=== PATIENT | female | born 1965 | race Caucasian/White ===

== ENCOUNTER 2017-04-01 11:12 | Emergency (ER) | payer BC ==
[2017-04-01 11:17] VITALS: BP 129/77; PULSE 77; TEMP 98.7; BMI 21.1
--- NOTE | 2017-04-01 11:53 | PDOC ---
History of Present Illness - General Chief Complaint: Back Pain Stated Complaint: LOW BACK PAIN Time Seen by Provider: 04/01/17 11:24 History Source: Patient Exam Limitations: No Limitations - History of Present Illness Initial Comments: 04/01/17 12:26 Patient is a [52-year-old female, only history of hypothyroidism on Synthroid presents for evaluation of right lateral lower back pain patient reports coughing a lot the last week was seen by her PMD started on cefdinir for sinus, upper respiratory infection. Patient states pain started yesterday once to make sure either she pulled her back or pain maybe from excessive coughing. Patient denies any shortness of breath. No upper back pain. No chest pain. Denies any hematuria or urinary symptoms.] Past Medical History: [Denies]. Allergies: No known allergies Medications: [Synthroid ] Family History: Non-contributory Social History: Denies smoking, alcohol use, or IVDU Vital signs on arrival are [notable for pulse of 96.] Review of Systems GENERAL/CONSTITUTIONAL: [No fever or chills. No weakness. No weight change.] HEAD, EYES, EARS, NOSE AND THROAT: [No change in vision. No ear pain or discharge. No sore throat. ] CARDIOVASCULAR: [No chest pain or shortness of breath.] RESPIRATORY: [+ cough, no wheezing, no hemoptysis.] GASTROINTESTINAL: [No nausea, vomiting, diarrhea or constipation. No rectal bleeding.] GENITOURINARY: [No dysuria, frequency, or change in urination.] MUSCULOSKELETAL: [No joint or muscle swelling or pain. No neck or back pain.] SKIN: [No rash or easy bruising.] NEUROLOGIC: [No headache, vertigo, loss of consciousness, or loss of sensation.] PSYCHIATRIC: [No depression or anxiety.] ENDOCRINE: [No increased thirst. No abnormal weight change.] HEMATOLOGIC/LYMPHATIC: [No anemia, easy bleeding, or history of blood clots.] ALLERGIC/IMMUNOLOGIC: [No hives or skin allergy. No latex allergy.] Physical Exam: GENERAL: [The patient is awake, alert, and fully oriented, in no acute distress. ] HEAD: [Normal with no signs of trauma.] EYES: [Pupils equal, round and reactive to light, extraocular movements intact, sclera anicteric, conjunctiva clear.] ENT: [Ears normal, nares patent, oropharynx clear without exudates. Moist mucous membranes. No uvula deviation] NECK: [Normal range of motion, supple without lymphadenopathy, JVD, or masses.] LUNGS: [Breath sounds equal. + wheezes, cleared with cough and no crackles.] HEART: [Regular rate and rhythm, normal S1 and S2 without murmur, rub or gallop. ] ABDOMEN: [Soft, nontender, normoactive bowel sounds. No guarding, no rebound. No masses. No bruising or abrasions] MUSCULOSKELETAL: [Normal range of motion, no edema. No clubbing or cyanosis. No cords, erythema, or tenderness. +mild CVA Tenderness on right with fist palpation.] NEUROLOGICAL: [Cranial nerves II through XII grossly intact. Normal speech, normal gait.] SKIN: [Warm, Dry, normal turgor, no rashes or lesions noted.] Occurred: reports: last week Past History - Past Medical History Allergies/Adverse Reactions: Allergies Allergy/AdvReac Type Severity Reaction Status Date / Time No Known Allergies Allergy Verified 04/01/17 11:17 Home Medications: Ambulatory Orders Levothyroxine [Synthroid -] 25 mcg PO DAILY 04/01/17 Naproxen [Naprosyn -] 500 mg PO BID #14 tablet 04/01/17 Promethazine HCl [Phenergan Plain 6.25 MG/5 ML -] 5 ml PO TID #60 ml 04/01/17 COPD: No Thyroid Disease: Yes - Suicide/Smoking/Psychosocial Hx Smoking History: Never smoked Hx Alcohol Use: No Drug/Substance Use Hx: No Substance Use Type: None *Physical Exam - Vital Signs Last Vital Signs Temp Pulse Resp BP Pulse Ox 98.7 F 77 20 129/77 97 04/01/17 11:13 04/01/17 11:13 04/01/17 11:13 04/01/17 11:13 04/01/17 11:13 ED Treatment Course - RADIOLOGY Radiology Studies Ordered: Category Date Time Status CHEST PA & LAT [RAD] Stat Radiology 04/01/17 11:33 Ordered Medical Decision Making - Medical Decision Making 04/01/17 12:29 A/P: Patient here for evaluation of bilateral low back pain most likely musculoskeletal in nature however cannot rule out urinary tract infection versus pneumonia. Will perform urinalysis, urine culture and chest xray. 04/01/17 13:20 Urinalysis and x-ray of both negative, Toradol 60 mg IM N, pain is musculoskeletal in nature. Reevaluate 04/01/17 22:47 Patient states relief after the Toradol DC patient home on Naprosyn follow-up with orthopedics if pain persists. I discussed the physical exam findings, ancillary test results and final diagnoses with the patient. I answered all of the patient's questions. The patient was satisfied with the care received and felt comfortable with the discharge plan and treatment plan. The patient will call to arrange follow-up and will return to the Emergency Department with any new, persistent or worsening symptoms. *DC/Admit/Observation/Transfer Diagnosis at time of Disposition: Musculoskeletal pain - Discharge Dispostion Disposition: HOME Condition at time of disposition: Good Admit: No - Prescriptions Prescriptions: Naproxen [Naprosyn -] 500 mg PO BID #14 tablet Promethazine HCl [Phenergan Plain 6.25 MG/5 ML -] 5 ml PO TID #60 ml - Referrals Referrals: Tara Cornejo [Primary Care Provider] - - Patient Instructions Additional Instructions: Refrain from lifting anything heavy recommend follow-up with PMD if symptoms are not starting to resolve on Monday. If any shortness of breath, chest pain or any other concerns return to ER - Post Discharge Activity Forms/Work/School Notes: Back to Work
[2017-04-01 11:56] LABS: URINE APPEARANCE CLEAR; URINE BILIRUBIN NEGATIVE (NEGATIVE); URINE BLOOD NEGATIVE (NEGATIVE); URINE COLOR LTYELLOW; URINE GLUCOSE (UA) NEGATIVE (NEGATIVE); URINE KETONE NEGATIVE (NEGATIVE); URINE NITRITE NEGATIVE (NEGATIVE); URINE PROTEIN NEGATIVE (NEGATIVE); URINE UROBILINOGEN NEGATIVE mg/dL (0.2-1.0)
[2017-04-01] MEDS ORDERED: KETOROLAC TROMETHAMINE 60 MG/2 ML VIAL IM ONE (13:19)
[2017-04-01] MEDS ORDERED: KETOROLAC TROMETHAMINE 60 MG/2 ML VIAL ONE (13:22)
[2017-04-01 17:35] LABS: URINE LEUK ESTERASE Negative (NEGATIVE)
== END 2017-04-01 13:52 | disposition home or self-care (01) ==
LOC: JERFT 11:12
PROC: 3E0233Z Introduction of Anti-inflammatory into Muscle, Percutaneous Approach (ICD-10-PCS; principal; 2017-04-01)
DX: M54.5 Low back pain (principal); E03.9 Hypothyroidism, unspecified
CPT/HCPCS: 71020-TC; 81003; 87086; 99281-25

== ENCOUNTER 2017-07-21 21:41 | Inpatient (IN) | payer BC ==
[2017-07-21] MEDS ORDERED: diazePAM 5 MG TABLET PO ONE (22:24)
--- NOTE | 2017-07-21 22:46 | PDOC ---
History of Present Illness <Adri Virk - Last Filed: 07/22/17 00:25> <Clementina Pina - Last Filed: 07/22/17 05:26> - History of Present Illness Initial Comments: 07/21/17 22:46 "The patient is a 52 year old female with a significant PMH of hypothyroidism and sciatica who presents to the emergency department with pain along her left hip radiating to the knee for the past week. The patient states the left hip pain is worse with movement and reports she is having difficulty standing or walking. Pt had a similar episode in March of last year that resolved with naproxen after a few days. Pt states that this episode began a week ago. Denies any trauma or falls that triggered it. She denies numbness in her legs. Denies incontinence of bowel or bladder. Denies saddle anesthesia. Pt has referral to orthopedist but has not f/u'ed yet. Pt states that this pain is the same as her previous episodes of sciatica. She notes that she was started on naproxen, cyclobenzaprine, and prednisone today for this episode with minimal relief. Pt also received toradol IV by EMS but also with minimal relief. The patient denies chest pain, shortness of breath, headache and dizziness. Denies fever, chills, nausea, vomit, diarrhea and constipation. Denies dysuria, frequency, urgency and hematuria. Allergies: NKA Past surgical history: Social history: No reported PCP: " <Ulisses Villa - Last Filed: 07/23/17 14:02> - General Chief Complaint: Pain, Acute Stated Complaint: PAIN Time Seen by Provider: 07/21/17 21:50 Past History <Adri Virk - Last Filed: 07/22/17 00:25> <Clementina Pina - Last Filed: 07/22/17 05:26> - Past Medical History COPD: No Thyroid Disease: Yes - Suicide/Smoking/Psychosocial Hx Smoking History: Never smoked Have you smoked in the past 12 months: No Information on smoking cessation initiated: No Hx Alcohol Use: No Drug/Substance Use Hx: No Substance Use Type: None <Ulisses Villa - Last Filed: 07/23/17 14:02> - Past Medical History Allergies/Adverse Reactions: Allergies Allergy/AdvReac Type Severity Reaction Status Date / Time No Known Allergies Allergy Verified 07/21/17 21:56 Home Medications: Ambulatory Orders Naproxen [Naprosyn -] 500 mg PO BID #14 tablet 04/01/17 Promethazine HCl [Phenergan Plain 6.25 MG/5 ML -] 5 ml PO TID #60 ml 04/01/17 Oxycodone HCl/Acetaminophen [Percocet 5-325 mg Tablet] 1 tab PO Q4H PRN #12 tablet MDD 6 tabs 07/22/17 Levothyroxine [Synthroid -] 50 mcg PO DAILY 07/23/17 Prednisone 10 mg PO DAILY 07/23/17 Review of Systems - Review of Systems Comments:: 07/21/17 22:52 "GENERAL/CONSTITUTIONAL: No fever or chills. No weakness. HEAD, EYES, EARS, NOSE AND THROAT: No change in vision. No ear pain or discharge. No sore throat. CARDIOVASCULAR: No chest pain or shortness of breath. RESPIRATORY: No cough, wheezing, or hemoptysis. GASTROINTESTINAL: No nausea, vomiting, diarrhea or constipation. GENITOURINARY: No dysuria, frequency, or change in urination. MUSCULOSKELETAL: (+) Left hip pain radiating to her left knee. No muscle swelling. No neck or back pain. SKIN: No rash NEUROLOGIC: No headache, vertigo, loss of consciousness, or change in strength/ sensation. ENDOCRINE: No increased thirst. No abnormal weight change. HEMATOLOGIC/LYMPHATIC: No anemia, easy bleeding, or history of blood clots. ALLERGIC/IMMUNOLOGIC: No hives or skin allergy." <Ulisses Villa - Last Filed: 07/23/17 14:02> *Physical Exam - Vital Signs Last Vital Signs Temp Pulse Resp BP Pulse Ox 97.6 F 64 19 129/69 98 07/21/17 21:46 07/21/17 21:46 07/21/17 21:46 07/21/17 21:46 07/21/17 21:46 <Adri Virk - Last Filed: 07/22/17 00:25> - Vital Signs Last Vital Signs Temp Pulse Resp BP Pulse Ox 97.6 F 64 19 129/69 98 07/21/17 21:46 07/21/17 21:46 07/21/17 21:46 07/21/17 21:46 07/21/17 21:46 <Clementina Pina - Last Filed: 07/22/17 05:26> - Vital Signs Last Vital Signs Temp Pulse Resp BP Pulse Ox 97.6 F 64 19 129/69 98 07/21/17 21:46 07/21/17 21:46 07/21/17 21:46 07/21/17 21:46 07/21/17 21:46 - Physical Exam Comments: 07/21/17 22:53 "GENERAL: Awake, alert, and fully oriented, in no acute distress HEAD: No signs of trauma EYES: PERRLA, EOMI, sclera anicteric, conjunctiva clear ENT: Auricles normal inspection, hearing grossly normal, nares patent, oropharynx clear without exudates. Moist mucosa NECK: Nontender, no stepoffs, Normal ROM, supple, no lymphadenopathy, JVD, or masses LUNGS: Breath sounds equal, clear to auscultation bilaterally. No wheezes, and no crackles HEART: Regular rate and rhythm, normal S1 and S2, no murmurs, rubs or gallops ABDOMEN: Soft, nontender, normoactive bowel sounds. No guarding, no rebound. No masses EXTREMITIES: LLE ROM limited 2/2 pain, no edema. No clubbing or cyanosis. No cords or erythema. NEUROLOGICAL: Cranial nerves II through XII intact. 5/5 strength and sensation in all extremities, Normal speech, normal gait, normal cerebellar function SKIN: Warm, Dry, normal turgor, no rashes or lesions noted." <AllenUlisses - Last Filed: 07/23/17 14:02> ED Treatment Course - Medications Given in the ED: ED Medications Discontinued Medications Generic Name Dose Route Start Last Admin Trade Name Freq PRN Reason Stop Dose Admin Diazepam 5 mg 07/21/17 22:24 07/21/17 23:00 Valium - PO 07/21/17 22:25 5 mg ONCE ONE Administration Oxycodone/Acetaminophen 1 combo 07/21/17 22:24 07/21/17 23:00 Percocet 5/325 - PO 07/21/17 22:25 1 combo ONCE ONE Administration <Adri Virk - Last Filed: 07/22/17 00:25> - Medications Given in the ED: ED Medications Discontinued Medications Generic Name Dose Route Start Last Admin Trade Name Jenny PRN Reason Stop Dose Admin Dexamethasone Sodium Phosphate 10 mg 07/22/17 00:25 07/22/17 01:17 Decadron Injection - IVPUSH 07/22/17 00:26 10 mg ONCE ONE Administration Diazepam 5 mg 07/21/17 22:24 07/21/17 23:00 Valium - PO 07/21/17 22:25 5 mg ONCE ONE Administration Ketorolac Tromethamine 30 mg 07/22/17 03:10 07/22/17 04:04 Toradol Injection - IVPUSH 07/22/17 03:11 30 mg ONCE ONE Administration Lorazepam 1 mg 07/22/17 03:10 07/22/17 04:04 Ativan - PO 07/22/17 03:11 1 mg ONCE ONE Administration Morphine Sulfate 4 mg 07/22/17 01:48 07/22/17 01:53 Morphine Injection - IVPUSH 07/22/17 01:49 4 mg ONCE ONE Administration Oxycodone/Acetaminophen 1 combo 07/21/17 22:24 07/21/17 23:00 Percocet 5/325 - PO 07/21/17 22:25 1 combo ONCE ONE Administration Oxycodone/Acetaminophen 1 combo 07/22/17 00:25 07/22/17 01:17 Percocet 5/325 - PO 07/22/17 00:26 1 combo ONCE ONE Administration <Clementina Pina - Last Filed: 07/22/17 05:26> - LABORATORY CBC & Chemistry Diagram: 07/23/17 06:00 07/23/17 06:00 <Ulisses Villa - Last Filed: 07/23/17 14:02> Medical Decision Making - Medical Decision Making 07/21/17 22:55 52 F with h/o sciatica presents with lower back pain radiating from L hip to L leg, consistent with h/o sciatica. Pt with no neuro deficits. No saddle anesthesia, no incontinence, no weakness/numbness to suggest spinal cord injury. - Percocet, valium - Reassess 07/22/17 02:00 Pt received 2 percocet, valium, decadron 10mg. Pt with persistent pain and difficulty bearing weight or ambulating. Will administer 4mg morphine at this time. Pt with no infectious symptoms to suggest epidural abscess, no clinical signs of cauda equina or cord compression. Pt signed out to Dr. Pina, pending re-evaluation after pain medication. <Ulisses Villa - Last Filed: 07/23/17 14:02> *DC/Admit/Observation/Transfer <Adri Virk - Last Filed: 07/22/17 00:25> - Discharge Dispostion Admit: Yes <Clementina Pina - Last Filed: 07/22/17 05:26> - Attestations Physician Attestion: 07/22/17 01:04 I, Dr. Ulisses Villa MD, attest that this document has been prepared under my direction and personally reviewed by me in its entirety. I further attest, that it accurately reflects all work, treatment, procedures and medical decision -making performed by me. <Ulisses Villa - Last Filed: 07/23/17 14:02> Diagnosis at time of Disposition: Sciatic nerve pain - Discharge Dispostion Condition at time of disposition: Fair
[2017-07-21] MEDS ORDERED: diazePAM 5 MG TABLET ONE (23:35)
[2017-07-22] MEDS ORDERED: DEXAMETHASONE SOD PHOSPHATE 10 MG/1 ML VIAL IVPUSH ONE (00:25)
[2017-07-22] MEDS ORDERED: DEXAMETHASONE SOD PHOSPHATE 10 MG/1 ML VIAL ONE (01:02)
[2017-07-22] MEDS ORDERED: morphine CARPU-JECT 4 MG/1 ML DISP.SYRIN IVPUSH ONE ×2 (01:48→05:28)
[2017-07-22] MEDS ORDERED: MORPHINE SULFATE 10 MG/1 ML *VIAL ONE ×2 (02:11→06:10)
[2017-07-22] MEDS ORDERED: LORazepam 1 MG TABLET PO ONE (03:10)
[2017-07-22] MEDS ORDERED: KETOROLAC TROMETHAMINE 30 MG/1 ML VIAL IVPUSH ONE ×2 (03:10→05:28)
[2017-07-22] MEDS ORDERED: KETOROLAC TROMETHAMINE 30 MG/1 ML VIAL ONE ×2 (03:53→06:10)
[2017-07-22] MEDS ORDERED: LORazepam 0.5 MG TABLET ONE (03:53)
[2017-07-22] MEDS ORDERED: LACTATED RINGERS SOLUTION 1,000 ML/1,000 ML INFUS.BAG IV STA (05:28)
[2017-07-22 06:24] LABS: HEMATOCRIT 40.9 % (32.4-45.2); HEMOGLOBIN 13.7 GM/dL (10.7-15.3); MCH 30.9 pg (25.7-33.7); MCHC 33.5 g/dl (32.0-36.0); MEAN CELL VOLUME 92.2 fl (80-96); PLATELET COUNT 229 K/MM3 (134-434); RBC 4.43 M/mm3 (3.60-5.2); RDW 14.5 % (11.6-15.6); WHITE BLOOD COUNT 14.1 K/mm3 (4.0-10.0)
[2017-07-22 07:10] LABS: ANION GAP 9 (8-16); BLOOD UREA NITROGEN 22 mg/dL (7-18); CALCIUM 8.2 mg/dL (8.5-10.1); CHLORIDE 104 mmol/L (98-107); CO2 23 mmol/L (21-32); CREATININE 0.7 mg/dL (0.55-1.02); GLUCOSE,RANDOM 132 mg/dL (74-106); SODIUM 136 mmol/L (136-145)
--- NOTE | 2017-07-22 07:20 | HP ---
CHIEF COMPLAINT:lower back pain radiating to left buttock and left leg with PCP:Dr. Tara Pack HISTORY OF PRESENT ILLNESS: 52 year old female with pmh of hypothyroidism and scitica pain who presented to the hospital with one week history of sever lower back pain radiated to the buttock and the left leg associated with numbness and tingling in the left feet she also reports muscle spasms in the left leg 3-4 times a week.She denies any recenet trauma or car accident. the pain improve when she lay back and with the morphin in ED , the pain is 10/10 and wake her up at night. she denies any urinary continence and stool incontinence, she denies any numbness or tingling in saddle area. she denies any fever, chills, N/V/D/C. denies any headache , blurry vision denies any chest pain or abdominal pain . She denies any joint pain or urinary symptoms. 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 she did not feel the pain since then. ER course was notable for: (1)cbc , cmp (2)valium 5 mg once, ketorlac injection 30 mg ivpush,RL 1L bolus , Ativan once , morphine 4 mg IVpush (3)dexamthasone 10 mg IV push once Recent Travel:denies PAST MEDICAL HISTORY: Hypothyroidism , schiatic nerve muralgia PAST SURGICAL HISTORY: denies Social History:works in maintenance in [employer] and carry heavy things up to 30 kg Smoking:socially Alcohol:denies Drugs: denies Family History:denies Allergies No Known Allergies Allergy (Verified 07/21/17 21:56) HOME MEDICATIONS: Home Medications Medication Instructions Recorded Levothyroxine [Synthroid -] 25 mcg PO DAILY 04/01/17 Naproxen [Naprosyn -] 500 mg PO BID #14 tablet 04/01/17 Promethazine HCl [Phenergan Plain 5 ml PO TID #60 ml 04/01/17 6.25 MG/5 ML -] Oxycodone HCl/Acetaminophen 1 tab PO Q4H PRN #12 tablet MDD 6 07/22/17 [Percocet 5-325 mg Tablet] tabs REVIEW OF SYSTEMS CONSTITUTIONAL: Absent: fever, chills, diaphoresis, generalized weakness, malaise, loss of appetite, weight change HEENT: Absent: rhinorrhea, nasal congestion, throat pain, throat swelling, difficulty swallowing, mouth swelling, ear pain, eye pain, visual changes CARDIOVASCULAR: Absent: chest pain, syncope, palpitations, irregular heart rate, lightheadedness , peripheral edema RESPIRATORY: Absent: cough, shortness of breath, dyspnea with exertion, orthopnea, wheezing, stridor, hemoptysis GASTROINTESTINAL: Absent: abdominal pain, abdominal distension, nausea, vomiting, diarrhea, constipation, melena, hematochezia GENITOURINARY: Absent: dysuria, frequency, urgency, hesitancy, hematuria, flank pain, genital pain MUSCULOSKELETAL: Absent: myalgia, arthralgia, joint swelling, back pain, neck pain SKIN: Absent: rash, itching, pallor HEMATOLOGIC/IMMUNOLOGIC: Absent: easy bleeding, easy bruising, lymphadenopathy, frequent infections ENDOCRINE: Absent: unexplained weight gain, unexplained weight loss, heat intolerance, cold intolerance NEUROLOGIC: Absent: headache, focal weakness or paresthesias, dizziness, unsteady gait, seizure, mental status changes, bladder or bowel incontinence PSYCHIATRIC: Absent: anxiety, depression, suicidal or homicidal ideation, hallucinations. PHYSICAL EXAMINATION Vital Signs - 24 hr 07/21/17 21:46 Temperature 97.6 F Pulse Rate 64 Respiratory 19 Rate Blood Pressure 129/69 O2 Sat by Pulse 98 Oximetry (%) GENERAL: Awake, alert, and fully oriented, in no acute distress. HEAD: Normal with no signs of trauma. EYES: Pupils equal, round and reactive to light, extraocular movements intact, sclera anicteric, conjunctiva clear EARS, NOSE, THROAT: Ears normal, nares patent, oropharynx clear without exudates.dry mucous membranes. NECK: Normal range of motion, supple without lymphadenopathy, JVD, LUNGS: Breath sounds equal, clear to auscultation bilaterally. No wheezes, and no crackles. No accessory muscle use. HEART: Regular rate and rhythm, normal S1 and S2 without murmur, rub or gallop. ABDOMEN: Soft, nontender, not distended, normoactive bowel sounds, no guarding, no rebound, no masses. No hepatomegaly or splenomegaly. MUSCULOSKELETAL: Normal range of motion at all joints. No CVA tenderness. UPPER EXTREMITIES: 2+ pulses, warm, well-perfused. No cyanosis. No clubbing. No peripheral edema.strength 5/5 B/L proximal and distal. sensation intact , reflexes +2 LOWER EXTREMITIES: 2+ pulses, warm, well-perfused. No calf tenderness. No peripheral edema. strength 5/5 B/L proximal and distal, hip flexion 5/5 B/L , knee flexion and extension 5/5 B/L, foot plantar flexion and dorsal flexion 5/5 , sensation intact, knee jerk +2 B/L , NEUROLOGICAL: Cranial nerves II-XII intact. Normal speech. Normal gait. PSYCHIATRIC: Cooperative. Good eye contact. Appropriate mood and affect. SKIN: Warm, dry, normal turgor, Laboratory Results - last 24 hr 07/22/17 06:17 WBC 14.1 H RBC 4.43 Hgb 13.7 Hct 40.9 MCV 92.2 MCH 30.9 MCHC 33.5 RDW 14.5 Plt Count 229 MPV 9.0 Neutrophils % No Result Required. Lymphocytes % No Result Required. CBC, BMP 07/22/17 06:17 07/22/17 06:17 ASSESSMENT/PLAN: 52 year old female with pmh of hypothyroidism and scitica pain who presented to the hospital with one week history of sever lower back pain radiated to the buttock and the left leg associated with numbness and tingling in the left feet was admitted to med surg for evaluation. # Sciatica * sever pain radiated to left buttock and left leg associated with numness and tingling in the left sole feet * lubmar xray * pain control Toradol * PT * MRI lumbar without contrast * muscle relaxant flexaril , toradol * dexamethasone 30 x2 days , * # Leukocytosis due to steroids use does not have signs of infection, no fever. continue steroids taper # Hypothyroidism * continue Synthroid 25mcg daily # FEN * RL in ER , oral intake * E: WNL , monitor * N: regular diet # proph * Dvts : scds , early ambulation # Dispo * Admit to med surg Visit type - Emergency Visit Emergency Visit: Yes ED Registration Date: 07/22/17 Care time: The patient presented to the Emergency Department on the above date and was hospitalized for further evaluation of their emergent condition. - New Patient This patient is new to me today: Yes Date on this admission: 07/22/17 - Critical Care Critical Care patient: No Hospitalist Screening - Colonoscopy Questionnaire Colonoscopy Questionnaire: Colonoscopy Questionnaire - Patient: 50 - 75 years old and never had a screening colonoscopy: Unknown History of colon or rectal polyps, or CA: Unknown History of IBD, Crohn's disease or UC: Unknown History of abdominal radiation therapy as a child: Unknown - Relative: 1 with colon or rectal CA, or polyps at age 60 or younger: Unknown Colon or rectal CA diagnosed at age 45 or younger: Unknown Multiple relatives with colon or rectal CA: Unknown - Outcome: Screening Result: Negative Screen
[2017-07-22 07:26] LABS: POTASSIUM 4.5 mmol/L (3.5-5.1)
[2017-07-22 08:16] LABS: LYMPH % 5.5 % (8-40); NEUT % 92.1 % (42.8-82.8)
[2017-07-22 08:17] LABS: BASO % 0.4 % (0-2.0)
[2017-07-22] MEDS: LEVOTHYROXINE NA 25 MCG TABLET (FP) PO SCH (10:04)
[2017-07-22] MEDS ORDERED: KETOROLAC TROMETHAMINE 10 MG TABLET PO SCH (12:00)
[2017-07-22] MEDS ORDERED: DEXAMETHASONE 4 MG TABLET (FP) PO ONE (12:53)
[2017-07-22] MEDS: CYCLOBENZAPRINE HCL 10 MG TABLET (FP) PO SCH ×2 (13:31→22:14)
--- NOTE | 2017-07-22 15:15 | PN ---
Teaching Attending Note Name of Resident: Rui Banda ATTENDING PHYSICIAN STATEMENT I saw and evaluated the patient. I reviewed the resident's note and discussed the case with the resident. I agree with the resident's findings and plan as documented. SUBJECTIVE: CC: lower back pain with radiation to LLE. HPI: 52 y/o lady with h/o hypothyroidism , h/o sciatica 20 yrs ago , who presented with lower back pain with radiatio to LLE . pain started a week ago, took off work and did not improved. She went to urgent care twice in past week and was prescribed prednisone to start yesterday but yesterday she had severe pain that she could not get up form bed and walk. pain radiates to L anterior and lateral thigh and someitmes it reaches ankle aand sole of the L foot . she experienced tingling in L plantar foot. denies any fever , chills, badder or stool incontinence. she denies any trauma or fall, but she works in house keping and lift heavy boxes and thinks she might have lifted up a heavy box a week ago . OBJECTIVE: NAD , AAox3 , pleasant and cooperative HEENT; NC, AT, MMM, no facial droop CV: RRR, no MRG Lungs: CTAB Ext: no edema or erythema Abd;soft, NT, ND , NL BS MS : no TTP over spine or paraspinal muscles Neuro of LE : LLE : hip flexion 4/5 ( limited by pain in back with flexion ) , knee flexion and extension , ankle dorsiflexion and plantar flexion 5/5 RLE: hip flexion 5/5 , knee flexion and extension , ankle dorsiflexion and plantar flexion 5/5 reflexes 2+ knee jerk and ankle jerk . sensation NL to light touch is Normal in both LE and in saddle area . Rectal exam done by Dr. banda and revealed nl rectal tone ASSESSMENT AND PLAN: 52 y/o lady with h/o hypothyroidism , h/o sciatica 20 yrs ago , who presented with lower back pain with radiation to LLE . 1- Lower back pain with Sciatica : no red flags ( fever , point tenderness, trauma , saddle anesthesi, loss of rectal tone or weakness) the elevated WBC is probably due to the prednisone prescribed at an Urgent care Likely she has a herniated disk compressing the nerve root ( L4-5, L5-S1) . no suspicion for epidural abscess or metastatic or primary tumor.no suspicion for Quda equina syndrome ( NL rectal tone/ no saddle anesthesia) - get MRI of the L spine due to the severity of her sx . - short prednisone course - flexeril - toradol - PT eval 2- hypothyroidism : cont synthroid dispo : dc is pending MRI, and sx control .
[2017-07-22 16:20] VITALS: BMI 22.1
[2017-07-22] MEDS: PANTOPRAZOLE 20 MG TABLET (FP) PO SCH (16:43)
[2017-07-23] MEDS: CYCLOBENZAPRINE HCL 10 MG TABLET (FP) PO SCH (06:07)
[2017-07-23] MEDS: LEVOTHYROXINE NA 25 MCG TABLET (FP) PO SCH (06:12)
[2017-07-23 07:22] LABS: ALBUMIN 3.3 g/dl (3.4-5.0); ANION GAP 13 (8-16); BLOOD UREA NITROGEN 22 mg/dL (7-18); CHLORIDE 102 mmol/L (98-107); CO2 22 mmol/L (21-32); GLUCOSE,RANDOM 118 mg/dL (74-106); POTASSIUM 4.5 mmol/L (3.5-5.1); SODIUM 137 mmol/L (136-145)
[2017-07-23 07:27] LABS: ALK PHOS 70 U/L (45-117); BILIRUBIN,TOTAL 0.4 mg/dL (0.2-1.0); CREATININE 0.7 mg/dL (0.55-1.02); SGOT/AST 19 U/L (15-37); SGPT/ALT 28 U/L (12-78); TOT PROT 6.6 g/dl (6.4-8.2)
[2017-07-23 07:37] LABS: BASO % 0.1 % (0-2.0); HEMATOCRIT 38.1 % (32.4-45.2); HEMOGLOBIN 13.1 GM/dL (10.7-15.3); LYMPH % 8.8 % (8-40); MCH 31.5 pg (25.7-33.7); MCHC 34.4 g/dl (32.0-36.0); MEAN CELL VOLUME 91.7 fl (80-96); MEAN PLT VOLUME 9.4 fl (7.5-11.1); NEUT % 86.1 % (42.8-82.8); PLATELET COUNT 204 K/MM3 (134-434); RBC 4.16 M/mm3 (3.60-5.2); RDW 14.4 % (11.6-15.6); WHITE BLOOD COUNT 7.6 K/mm3 (4.0-10.0)
[2017-07-23] MEDS: KETOROLAC TROMETHAMINE 15 MG/ML VIAL IVPUSH PRN ×2 (07:54→18:33)
[2017-07-23] MEDS ORDERED: predniSONE 10 MG TABLET (UD) PO ONE (09:30)
[2017-07-23] MEDS ORDERED: morphine CARPU-JECT 4 MG/1 ML DISP.SYRIN IVPUSH ONE (09:43)
[2017-07-23] MEDS: diazePAM 5 MG TABLET PO PRN ×2 (09:44→18:33)
[2017-07-23] MEDS: PANTOPRAZOLE 20 MG TABLET (FP) PO SCH (09:44)
[2017-07-23] MEDS ORDERED: morphine SULFATE 4 MG/ML VIAL ONE (10:07)
--- NOTE | 2017-07-23 12:05 | PN ---
Progress Note (short form) - Note Progress Note: Subjective: severe back pain with radiation to L thigh . no numbnes, tingling or weakness but can't and does not want to move her legs due to pain . still no urinary or stool incontinence Objective: Vital Signs: Last Vital Signs Temp Pulse Resp BP Pulse Ox 98.0 F 62 20 117/73 98 07/23/17 08:00 07/23/17 08:00 07/23/17 08:00 07/23/17 08:00 07/23/17 08:00 Laboratory Results - last 24 hr 07/23/17 07/23/17 06:00 06:00 WBC 7.6 D RBC 4.16 Hgb 13.1 Hct 38.1 MCV 91.7 MCH 31.5 MCHC 34.4 RDW 14.4 Plt Count 204 MPV 9.4 Neutrophils % 86.1 H Lymphocytes % 8.8 D Monocytes % 5.0 D Eosinophils % 0.0 Basophils % 0.1 Sodium 137 Potassium 4.5 Chloride 102 Carbon Dioxide 22 Anion Gap 13 BUN 22 H Creatinine 0.7 Creat Clearance w eGFR > 60 Random Glucose 118 H Calcium 8.0 L Total Bilirubin 0.4 AST 19 ALT 28 Alkaline Phosphatase 70 Total Protein 6.6 Albumin 3.3 L OBJECTIVE: mild distress , crying MMM CV: RRR, no MRG Lungs: CTAB Ext: no edema or erythema Neuro of LE : unable to perform due to pain ASSESSMENT AND PLAN: 52 y/o lady with h/o hypothyroidism , h/o sciatica 20 yrs ago , who presented with lower back pain with radiation to LLE . 1- Lower back pain with Sciatica : MRI reviewed. bulging disk with L L3 compression - cont toradol day 2/3 , flexeril and valium. - add lidocain patch - give IV morphine - cnt prednisone 30 mg day 2 today - due to no weakness, there is no indication for surgery and she does not want any surgical procedure 2- hypothyroidism : cont synthroid not safe to dc home as can't ambulate and requires IV pain meds . requires inpatient admission Visit type - Emergency Visit Emergency Visit: Yes ED Registration Date: 07/22/17 Care time: The patient presented to the Emergency Department on the above date and was hospitalized for further evaluation of their emergent condition. - New Patient This patient is new to me today: No - Critical Care Critical Care patient: No
[2017-07-23] MEDS: LIDOCAINE 5% TOPICAL PATCH TP SCH (13:48)
[2017-07-23] MEDS: LIDOCAINE PATCH REMOVAL MC SCH (21:44)
[2017-07-24] MEDS: LEVOTHYROXINE NA 25 MCG TABLET (FP) PO SCH (06:11)
[2017-07-24] MEDS: KETOROLAC TROMETHAMINE 15 MG/ML VIAL IVPUSH PRN (06:12)
[2017-07-24] MEDS: predniSONE 10 MG TABLET (UD) PO SCH (09:48)
[2017-07-24] MEDS: PANTOPRAZOLE 20 MG TABLET (FP) PO SCH (09:48)
[2017-07-24] MEDS: LIDOCAINE 5% TOPICAL PATCH TP SCH (09:49)
[2017-07-24] MEDS ORDERED: CYCLOBENZAPRINE HCL 5 MG TABLET PO SCH (10:00)
[2017-07-24] MEDS ORDERED: morphine CARPU-JECT 4 MG/1 ML DISP.SYRIN IVPUSH ONE (10:10)
[2017-07-24] MEDS: diazePAM 5 MG TABLET PO SCH ×3 (10:37→21:15)
[2017-07-24] MEDS ORDERED: MORPHINE SULFATE 10 MG/1 ML *VIAL IVPUSH ONE (11:00)
--- NOTE | 2017-07-24 11:23 | MSN ---
Progress Note (SOAP) - Subjective Chief Complaint: Sciatica nerve pain History of Present Illness: Pt is a 52yo female with PMHx of sciatica nerve pain and hypothyroidism who presented to the ED for a sharp shooting pain in her left lower extremity which started about a week prior. The pain is a 25 out of 10 and caused her to be unable to ambulate. The pain starts in her buttock region and radiating down her lateral/anterior left thigh and into her posterior knee. Pt reports some pain extending past her knee initially but not anymore. Pt reports initially having numbness and tingling in a similar distribution as well as extending past her knee into the sole of her foot but denies any numbness or tingling anymore. Pt denies urinary incontinence, bowel incontinence, saddle anesthesia, or weakness. Pt denies fever/chills, nausea/vomiting, chest pain, headache, or change in vision/hearing. Pt reports having a fall which she injured her back approx ~25 years ago, she had an MRI at the time which showed some herniation, but she denies ever experiencing pain like this until now. Pt reports trying OTC NSAIDs at home with little relief, patient reports the toradol she is currently receiving doesnt help either. - Current Medications Current Medications: Active Medications Acetaminophen (Tylenol -) 325 mg PO Q4H PRN PRN Reason: FOR PAIN LEVEL 6-10 Stop: 07/27/17 10:26 Cyclobenzaprine HCl (Flexeril -) 10 mg PO TID [facility] Diazepam (Valium -) 5 mg PO TID [facility] Last Admin: 07/24/17 10:37 Dose: 5 mg Levothyroxine Sodium (Synthroid -) 25 mcg PO AM [facility] Last Admin: 07/24/17 06:11 Dose: 25 mcg Lidocaine (Lidoderm Patch -) 1 patch TP DAILY [facility] Last Admin: 07/24/17 09:49 Dose: 1 patch Miscellaneous (Lidoderm Patch Removal) 1 each MC DAILY@2200 [facility] Last Admin: 07/23/17 21:44 Dose: 1 each Oxycodone HCl (Roxicodone -) 5 mg PO Q4H PRN PRN Reason: PAIN LEVEL 6-10 Pantoprazole Sodium (Protonix -) 20 mg PO DAILY [facility] Last Admin: 07/24/17 09:48 Dose: 20 mg Prednisone (Deltasone -) 30 mg PO DAILY [facility] Last Admin: 07/24/17 09:48 Dose: 30 mg - Objective Vital Signs: Vital Signs Temperature 98.1 F 07/24/17 05:39 Pulse Rate 67 07/24/17 05:39 Respiratory Rate 20 07/24/17 05:39 Blood Pressure 132/60 07/24/17 05:39 O2 Sat by Pulse Oximetry (%) 98 07/24/17 02:43 Constitutional: Yes: Well Nourished, Severe Distress (2 episodes of muscle sapsm during my exam which lasted about 20-25 seconds each ) Eyes: Yes: EOM Intact, PERRL HENT: Yes: Atraumatic, Normocephalic Neck: Yes: Supple. No: Lymphadenopathy Cardiovascular: Yes: Regular Rate and Rhythm. No: JVD Respiratory: Yes: CTA Bilaterally Gastrointestinal: Yes: Normal Bowel Sounds, Soft. No: Tenderness Musculoskeletal: Yes: Back Pain Extremities: No: Cold, Cool, Cyanosis Peripheral Pulses WNL: Yes Peripheral Pulses: Left Radial: 2+, Right Radial: 2+, Left Doralis Pedis: 2+, Right Dorsalis Pedis: 2+ Edema: No Neurological: Yes: Alert, Oriented, Cran Nerves II-XII Intact. No: Loss of Sensation, Numbness, Paresthesia, Tingling, Weakness ...Motor Strength: Yes: WNL, LLE (4/5 hip flexion, limited due to pain) Psychiatric: Yes: Alert, Oriented Labs Lab Results: CBC, BMP 07/23/17 06:00 07/23/17 06:00 Imaging - Results MRI: Report Reviewed Assessment/Plan # Sciatica nerve pain lumbar MRI showing herniation contacting left L3 and right L5 PT consulted Toradol day 3 of 3 Prednisone day 3 of 7 Cont valium and flexeril Cont Lidocaine patch Morphine one time dose Percocet q4h PRN Consult Neuro surg - intractable pain Consult for possible epidural injection # Hypothyroidism cont synthroid #FEN no IV fluids WNL regular diet
[2017-07-24] MEDS: CYCLOBENZAPRINE HCL 10 MG TABLET (FP) PO SCH ×2 (14:29→21:15)
--- NOTE | 2017-07-24 14:37 | PN ---
Teaching Attending Note Name of Resident: Juan Carlos Lugo ATTENDING PHYSICIAN STATEMENT I saw and evaluated the patient. I reviewed the resident's note and discussed the case with the resident. I agree with the resident's findings and plan as documented. SUBJECTIVE: no fever or chills. has no abd pain. has lower back pain with radiation to L thigh. denies saddle anesthesia, no fecal or urine incontinence . no weakness or numbness . OBJECTIVE: looks in pain, cooperative MMM CV: RRR, no MRG Lungs: CTAB Ext: no edema or erythema Neuro of LE: LLE : hip flexion 5/5 today , knee flexion and extension , ankle dorsiflexion and plantar flexion 5/5 RLE: hip flexion 5/5 , knee flexion and extension , ankle dorsiflexion and plantar flexion 5/5 reflexes 2+ knee jerk and ankle jerk . sensation NL to light touch is Normal in both LE and in saddle area . ASSESSMENT AND PLAN: 52 y/o lady with h/o hypothyroidism , h/o sciatica 20 yrs ago , who presented with lower back pain with radiation to LLE . 1- Lower back pain with Sciatica : bulging disk L3-4 with Left L3 nerve root compression . still in severe pain and with difficulty ambulating - day 3 of toradol . will stop - cont valium and flexeril . Make it standing . - cont lidocain patch - give IV morphine now and then start oxycodone - cont prednisone 30 mg day3 today - There is no focal weakness, saddle anesthesia , incontinence or any other red flags , but due to the severity of pain and difficulty ambulating, will consult neur sx to review MRI and advise, also pain mgt for possible injection 2- Hypothyroidism : cont synthroid HLOC due to severe pain and difficulty ambulating
--- NOTE | 2017-07-24 16:04 | PN ---
Progress Note (short form) - Note Progress Note: NEUROSURGERY CONSULT DICTATED Chart reviewed Pt examined History obtained Daughter at bedside MRI reviewed H/o hypothyroidism and LBP who presented with one week history of sever lower back pain radiated to the buttock, anterior and posterior thigh and the left thibodeaux associated with numbness and tingling in the left foot. No weakness or bowel/bladder dysfunction. Pt denies any recent fall, trauma or car accident. Pain is better when she lay back and with meds. Pain is 25/10. Pt denies any urinary continence or stool incontinence. Pt denies any fever, chills, N/V/D/C. PE: AF, VSS HEENT- NC/AT; Neck- supple; Cor- RRR; Lungs- CTA; Abd- benign; Ext- no sign of DVT NEURO- A/A/Ox4 CN- intact II-XII; Motor- 5/5 except L foot eversion 4+; Sensation- intact LT/ vibration; DTR- decreased L patellar refelx; Gait- slow Back- tenderness L sciatica notch; + SLR on L at 45 degrees Labs reviewed MRI- L3-4 and L4-5 DDD; L L3-4 foramenal disc protrusion, B L4-5 disc bulge and foramenal narrowing R > L; no severe central stenosis L L3-4 > L4-5 stenosis with acute L L4 radiculopathy Cont meds, currently on steroid, muscle relaxant, and painkillers Trial of neurontin PT/rehab If persistent pain, consider EPSI Pros and cons of treatment approaches including surgical decompression given L L4 neurological changes discussed Pt opts for medical tx only; understanding that with decreased L patellar DTR and L foot eversion weakness that there might be some underlying nerve damage
[2017-07-24] MEDS: oxyCODONE HCL 5 MG TABLET PO PRN (18:04)
[2017-07-24] MEDS: ACETAMINOPHEN 325 MG TABLET (FP) PO PRN (18:05)
--- NOTE | 2017-07-24 19:49 | PN ---
Physical Exam: SUBJECTIVE: Patient seen and examined No acute events overnight. Patient is in severe discomfort. Denies fever, chills , urinary or bowel incontinence, or any other red flag symptoms (Including saddle anesthesia or weakness). OBJECTIVE: Vital Signs Period Temp Pulse Resp BP Sys/Le Pulse Ox Last 24 Hr 97.7 F-98.1 F 67-75 20-20 132-134/60-82 98-99 GENERAL: The patient is awake, alert, and fully oriented, in mild distress. HEAD: Normal with no signs of trauma. EYES: PERRL, extraocular movements intact, sclera anicteric, conjunctiva clear. No ptosis. ENT: Ears normal, nares patent, oropharynx clear without exudates, moist mucous membranes. NECK: Trachea midline, full range of motion, supple. LUNGS: Breath sounds equal, clear to auscultation bilaterally, no wheezes, no crackles, no accessory muscle use. HEART: Regular rate and rhythm, S1, S2 without murmur, rub or gallop. ABDOMEN: Soft, nontender, nondistended, normoactive bowel sounds, no guarding, no rebound, no hepatosplenomegaly, no masses. EXTREMITIES: 2+ pulses, warm, well-perfused, no edema. NEUROLOGICAL: Cranial nerves II through XII grossly intact. Normal speech, gait not observed. 5/5 strength in b/l lower extremities, 2+ reflexes at knee and achilles, sensation intact bilatearlly PSYCH: Normal mood, normal affect. SKIN: Warm, dry, normal turgor, no rashes or lesions noted Active Medications Generic Name Dose Route Start Last Admin Trade Name Freq PRN Reason Stop Dose Admin Acetaminophen 325 mg 07/24/17 10:27 07/24/17 18:05 Tylenol - PO 07/27/17 10:26 325 mg Q4H PRN Administration FOR PAIN LEVEL 6-10 Cyclobenzaprine HCl 10 mg 07/24/17 10:15 07/24/17 14:29 Flexeril - PO 10 mg TID [facility] Administration Diazepam 5 mg 07/24/17 10:00 07/24/17 14:30 Valium - PO 5 mg TID [facility] Administration Gabapentin 100 mg 07/24/17 22:00 Neurontin - PO TID [facility] Levothyroxine Sodium 25 mcg 07/22/17 08:45 07/24/17 06:11 Synthroid - PO 25 mcg AM [facility] Administration Lidocaine 1 patch 07/23/17 12:00 07/24/17 09:49 Lidoderm Patch - TP 1 patch DAILY [facility] Administration Miscellaneous 1 each 07/23/17 22:00 07/23/17 21:44 Lidoderm Patch Removal MC 1 each DAILY@2200 [facility] Administration Oxycodone HCl 5 mg 07/24/17 10:27 07/24/17 18:04 Roxicodone - PO 5 mg Q4H PRN Administration PAIN LEVEL 6-10 Pantoprazole Sodium 20 mg 07/22/17 15:45 07/24/17 09:48 Protonix - PO 20 mg DAILY [facility] Administration Prednisone 30 mg 07/24/17 10:00 07/24/17 09:48 Deltasone - PO 30 mg DAILY [facility] Administration ASSESSMENT/PLAN: 52 year old female with past medical history of hypothyroidism and history of sciatica 20 years ago presented with lower back pain radiating to the left lower extremity. #Low back pain with left lower extremity sciatica, Bulging L3 compression -D/c Toradol -Continue Valium 5 tid and Flexeril 10 tid scheduled -Continue Lidocaine patch -Will give one dose of IV morphine 4mg and then start Percocet -Will continue prednisone 30 mg dailyFor one weekToday is day three. -Neurosurgical consult, Dr. Thorne --Her his recommendations, Will start Neurontin 100 mg TID -Physical therapy -Pain management consult, Dr. Taylor #Hypothyroidism -Continue synthroid 25 mcg po am #FEN/GI -No IVF -monitor BMP -Regular diet #PPx -SCDs -Protonix 20 mg daily #Dispo: Once patient's pain is controlled and she's able to ambulate, d/c planning can begin. Visit type - Emergency Visit Emergency Visit: Yes ED Registration Date: 07/23/17 Care time: The patient presented to the Emergency Department on the above date and was hospitalized for further evaluation of their emergent condition. - New Patient This patient is new to me today: Yes Date on this admission: 07/24/17 - Critical Care Critical Care patient: No
[2017-07-24] MEDS: LIDOCAINE PATCH REMOVAL MC SCH (21:15)
[2017-07-24] MEDS: GABAPENTIN 100 MG CAPSULE (FP) PO SCH (21:15)
[2017-07-25] MEDS: oxyCODONE HCL 5 MG TABLET PO PRN ×3 (05:08→17:04)
[2017-07-25] MEDS: ACETAMINOPHEN 325 MG TABLET (FP) PO PRN ×3 (05:09→17:04)
[2017-07-25 05:36] VITALS: TEMP 98.2
[2017-07-25] MEDS: CYCLOBENZAPRINE HCL 10 MG TABLET (FP) PO SCH ×2 (06:05→13:15)
[2017-07-25] MEDS: LEVOTHYROXINE NA 25 MCG TABLET (FP) PO SCH (06:05)
[2017-07-25] MEDS: GABAPENTIN 100 MG CAPSULE (FP) PO SCH ×2 (06:05→13:15)
[2017-07-25] MEDS: diazePAM 5 MG TABLET PO SCH ×2 (06:05→13:15)
--- NOTE | 2017-07-25 08:41 | PN ---
Progress Note (short form) - Note Progress Note: NEUROSURGERY Pain slightly better Still some thibodeaux/foot numbness PE: AF, VSS HEENT- NC/AT; Neck- supple; Cor- RRR; Lungs- CTA; Abd- benign; Ext- no sign of DVT NEURO- A/A/Ox4 CN- intact II-XII; Motor- 5/5 except L foot eversion 4+; Sensation- intact LT/ vibration; DTR- decreased L patellar refelx; Gait- slow Back- tenderness L sciatica notch; + SLR on L at 45 degrees MRI- L3-4 and L4-5 DDD/facet arthrosis; L L3-4 foramenal disc protrusion, B L4- 5 disc bulge and foramenal narrowing R > L; no severe central stenosis L L3-4 > L4-5 stenosis with acute L L4 radiculopathy Cont meds: muscle relaxant, painkillers; neurontin Steroid taper PT/rehab If persistent pain, consider EPSI Pros and cons of treatment approaches discussed Pt opts for medical tx only
[2017-07-25] MEDS: predniSONE 10 MG TABLET (UD) PO SCH (08:59)
[2017-07-25] MEDS: PANTOPRAZOLE 20 MG TABLET (FP) PO SCH (08:59)
[2017-07-25] MEDS: LIDOCAINE 5% TOPICAL PATCH TP SCH (08:59)
--- NOTE | 2017-07-25 12:58 | CONS ---
DATE OF CONSULTATION: DATE OF DICTATION: 07/24/2017 REQUESTING PHYSICIAN: Julio Cesar Souza MD PROJECT MANAGEMENT CONSULTANT: Fredi Thorne MD, Neurosurgery. CHIEF COMPLAINT: Lower back pain and left L4 radiculopathy. HISTORY OF PRESENT ILLNESS: The patient is a 52-year-old right-handed female with a history of hypothyroidism and chronic intermittent lower back pain who presents with a one-week history of worsening lower back pain and left lower extremity radiculopathy. Her pain radiates down to her left buttock, anterior and posterior thigh and left thibodeaux area. Initially, she also experienced numbness and tingling in the left foot. She denies weakness or bowel/bladder dysfunction. She denies recent trauma, fall or accident. Her pain is better with lying down and taking medication. She rates her pain as 25 on a 1-10 scale. She denied bowel/bladder incontinence. She has had no fever, chills or recent infection. PAST MEDICAL HISTORY: Significant for hypothyroidism. CURRENT MEDICATIONS: Lidoderm patch, Deltasone, Tylenol, Valium, Flexeril, Roxicodone, Protonix and Synthroid. ALLERGIES: There are no known drug allergies. FAMILY HISTORY: Noncontributory. SOCIAL HISTORY: She does not smoke and only drinks alcohol socially. 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 REVIEW OF SYSTEMS: Otherwise negative for other major head and neck, cardiovascular, pulmonary, gastrointestinal, genitourinary, endocrinologic, neurologic, psychologic or dermatologic problems except for the above. PHYSICAL EXAMINATION: Vital signs: Temperature is 98, blood pressure is 134/82 with a pulse rate of 75, O2 saturation is 99% on room air. HEENT: Examination shows her to be normocephalic, atraumatic, anicteric. Neck: Supple with no carotid bruit. Coronary: Examination demonstrates a regular rhythm. Lungs: Clear to auscultation bilaterally. Abdomen: Benign. Extremities: Examination shows no new signs of DVT. Distal pulses are 2+. Neurologic: She is awake and alert and oriented x4. Cranial nerve examination is intact 2-12. Motor examination shows 5/5 strength except for left foot eversion , which is 4+. Sensory examination is intact to light touch, pinprick and vibratory sensation. Deep tendon reflexes are 2+ throughout except for diminished left patellar reflex. Examination of the lower back shows mild paraspinal muscle spasm and left sciatic notch tenderness. She has a positive straight leg raise at 45 degrees. Gait shows her to be slow. She favors her left lower extremity somewhat. LABORATORY EXAMINATION: Shows the white blood cell count initially at 14.1; it is now 7.6. Hemoglobin is 13.1 and platelet count is 204,000. Serum sodium is 137 , BUN is 22, creatinine is 0.7, calcium is 8.0, albumin 3.3. MRI of the lumbar spine demonstrated L3-L4 and L4-L5 degenerative disk disease. She has mild facet hypertrophy throughout. At L3-L4, there is posterolateral and foraminal disk protrusion with foraminal narrowing. There is slight impingement of the left L3 nerve root. There is also mild lateral recess narrowing on the left. There is a broad-based L4-L5 disk bulge with right greater than left L4-L5 foraminal narrowing and lateral recess narrowing. IMPRESSION: 1. Left L4-L5 foraminal disk protrusion and L4-L5 lateral recess stenosis with acute left L4 radiculopathy. 2. Hypothyroidism. RECOMMENDATIONS: The patient is a 52-year-old female with minimal medical problems in the past except for hypothyroidism, who complains of chronic intermittent lower back pain and the recent onset of increasing lower back pain and left-sided sciatica. On my examination today, she had trace weakness of left foot eversion and decreased left patellar reflex. Clinically, she has left L4 radiculopathy. Given her decreased ankle patellar reflex, she may have underlying neurological dysfunction. She has been started on steroids, muscle relaxants and pain medication with some improvement of her symptomatology. I also took the liberty of putting her on Neurontin 100 mg p.o. t.i.d. as a neurotropic agent adjunct for her condition. The patient also has the options of trying a course of physical therapy and rehabilitation in addition to considering epidural steroid injection. Because of her mild L L4 distribution motor deficits with decreased left patellar reflex, microsurgical decompression was also briefly discussed. The patient understands that she has some lumbar nerve dysfunction, and is opting for further medical treatment at this time, which is not unreasonable given the mild neurological deficit. The pros and cons of treatment that were approached were discussed in detail. Her daughter was present at bedside through the entire consultation. All questions were answered. FREDI THORNE M.D. ROSA/[id number] MTDLeo
[2017-07-25 15:06] VITALS: BP 113/76; PULSE 76
--- NOTE | 2017-07-25 16:27 | PN ---
Teaching Attending Note Name of Resident: Juan Carlos Lugo ATTENDING PHYSICIAN STATEMENT I saw and evaluated the patient. I reviewed the resident's note and discussed the case with the resident. I agree with the resident's findings and plan as documented. SUBJECTIVE: No fever or chills.back pain has improved. able to ambulate a little better . no incontinence or saddle anesthesia OBJECTIVE: NAD CV: RRR, no MRG Lungs: CTAB Ext: no edema or erythema Neuro of LE: LLE : hip flexion 5/5 , knee flexion and extension , ankle dorsiflexion and plantar flexion 5/5 RLE: hip flexion 5/5 , knee flexion and extension , ankle dorsiflexion and plantar flexion 5/5 reflexes 2+ knee jerk and ankle jerk . Sensation NL to light touch is Normal in both LE ASSESSMENT AND PLAN: 52 y/o lady with h/o hypothyroidism , h/o sciatica 20 yrs ago , who presented with lower back pain with radiation to LLE . 1- Lower back pain with Sciatica : bulging disk L3-4 with Left L3 nerve root compression . sx much imporved and able towalk now. she obted for medical treatment f/u with neuro sx pain mgt as outpt if cont to be symptomatic for epidural sterpid injection cont muscle relaxant and pain control prednisone taper dc to rehab ASSESSMENT AND PLAN:
--- NOTE | 2017-07-25 17:45 | DS ---
Physical Exam: Selected Entries 07/25/17 15:02 Temperature 98.2 F Pulse Rate 76 Blood Pressure 113/76 Laboratory Tests 07/22/17 07/23/17 06:17 06:00 WBC 14.1 H 7.6 D Hgb 13.7 13.1 Hct 40.9 38.1 Plt Count 229 204 Neutrophils % 92.1 H 86.1 H Imaging: Lumbar Spine MRI: Impression: 1. At L3-L4, left paracentral to left foraminal disc protrusion mildly narrowing the left neural foramen, contacting and mildly displacing the left L3 nerve root. 2. At L4-L5, shallow right paracentral to foraminal protrusion contacting the descending right L5 nerve root with no significant neural foraminal narrowing or impingement of the L4 nerve. 3. Gastric distention may be physiologic or pathologic HOSPITAL COURSE: Date of Admission:07/23/17 Date of Discharge: 07/25/17 52 y.o. F with pmh of hypothyroidism, h/o of sciatica many years prior presented with low back pain radiating to LLE with numbness. Patient never had any red flag symptoms including fever, weakness, saddle anesthesia, or bowel/ bladder incontinence. MRI of the lumbar spine was performed (results above). Patient's pain was controlled with a short course of steroids, valium, flexeril , percocet, lidocaine patch, and neurontin. Neruosurgery evaluated the patient while in the hospital and recommended rehab and PT and if pain persists to consider epidural spinal injection. Patient was discharged to rehab with referrals for pain mgmt and neurosx. Patient wants no neurosurgical intervention and medical management only. Patient discharged on prednisone taper, flexeril, neurontin, and percocet. PCP INFORMATION: phone [phone] fax [phone] Minutes to complete discharge: 35 Discharge Summary Reason For Visit: SCIATIC NERVE PAIN Current Active Problems Sciatic nerve pain (Acute) Hypothyroidism (Chronic) Condition: Stable - Instructions Diet, Activity, Other Instructions: You were in the hospital for severe back pain. Medical Recommendations: 1. Take percocet, and flexeril as needed for back pain. Do not use more than directed. 2. We have provided you prescriptions for neurontin 100 mg three times per day. 3. Take prednisone for 4 more days. It will be tapered. Take 20 mg for 2 days (, 3/15) followed by 10 mg for 2 days (07/28, 07/29) and then stop. 4. Continue taking your other medications as prescribed. 5. Please go to outpatient rehab to improve your strength. Referrals: 1. Follow up with your primary doctor within 1 week for further evaluation. 2. We have provided you with a referral for the neurosurgeon and pain coordinator. *If you experience worsening pain, numbness, weakness, difficulty controlling your urine or stool, or any other concerning symptoms, return to the ER immediately. No driving while on percocet and flexeril Referrals: Rick Taylor MD [Staff Physician] - Tara Cornejo [Primary Care Provider] - Fredi Thorne MD [Staff Physician] - Disposition: CARE HOME FACILITY - Home Medications Comprehensive Discharge Medication List: Ambulatory Orders Levothyroxine [Synthroid -] 50 mcg PO DAILY 07/23/17 Cyclobenzaprine HCl [Flexeril -] 10 mg PO TID #21 tablet 07/25/17 Gabapentin [Neurontin -] 100 mg PO TID #21 capsule 07/25/17 Oxycodone HCl/Acetaminophen [Percocet 5-325 mg Tablet] 1 combo PO Q4H #42 tablet MDD 6 pills 07/25/17 predniSONE [Deltasone -] See Taper PO DAILY #6 tab 07/25/17 This patient is new to me today: No Emergency Visit: Yes ED Registration Date: 07/23/17 Care time: The patient presented to the Emergency Department on the above date and was hospitalized for further evaluation of their emergent condition. Critical Care patient: No - Discharge Referral Referred to [facility] Med [facility] No
[2017-07-25] MEDS ORDERED: POLYETHYLENE GLYCOL 3350 119 GM BTL PO ONE (17:52)
== END 2017-07-25 19:01 | DRG 552 ==
LOC: JER 21:41 → JERBED 07-22 05:26 → UNDOADMOB 07-22 05:26 → JERBED 07-22 05:38 → UNDOADMOB 07-22 05:38 → J6S 07-22 07:34 → JERBED 07-22 07:34 → INTOOBSV 07-22 08:29 → OBSVTOIN 07-22 08:29 → JERBED 07-22 11:26 → J6S 07-22 11:26 → OBSVTOIN 07-23 12:16
PROVIDERS: ADMIT Internal Medicine; ATTEND Internal Medicine
DX: M54.42 Lumbago with sciatica, left side (principal); M51.36 Other intervertebral disc degeneration, lumbar region; E03.9 Hypothyroidism, unspecified; D72.828 Other elevated white blood cell count; M54.16 Radiculopathy, lumbar region; M48.061 Spinal stenosis, lumbar region without neurogenic claudication
CPT/HCPCS: 36415; 72148-TC; 80048; 80053; 85025; 97116-GP; 97161-GP; 99281-25; G0378; J1100